=== PATIENT | male | born 1945 | race Caucasian/White ===

== ENCOUNTER 2022-09-30 09:18 | Emergency (ER) | payer MEDICARE, SELFPAY ==
--- NOTE | ~2022-09-30 | XR_ITS ---
EXAMINATION: XR chest 2V DATE: 09/30/2022 10:14 INDICATION: Cough. TECHNIQUE: Frontal and lateral views of the chest were obtained. COMPARISON: None. FINDINGS: There is mild atelectasis versus scarring in the lower lung zones. No pleural effusion or p neumothorax. The heart size is normal. There are prominent paracardial fat pads. IMPRESSION: 1. Mild atelectasis versus scarring in the lower lung zones. Reviewed, dictated and finalized at location A. 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
[2022-09-30 09:48] VITALS: BP 129/52; PULSE 62; RESP 20; TEMP 36.8; O2SAT 97
--- NOTE | 2022-09-30 10:41 | ED.URI ---
HPI - URI/Sore Throat General Chief Complaint: Upper Respiratory Infection Stated Complaint: Cough Time Seen by Provider: 09/30/22 10:42 Source: patient and RN notes reviewed Mode of arrival: ambulatory Limitations: no limitations History of Present Illness HPI Narrative: 76-year-old male presents with concern for cough for more than 1 week. Reports when symptoms 1st started he had fever that resolved. He reports persistent coughing. He reports fatigue and malaise MD elicited complaint: cough and sore throat Related Data Home Medications Medication Instructions Recorded Confirmed carvedilol 25 mg tablet 25 mg PO DAILY 09/30/22 09/30/22 diltiazem HCl 300 mg 300 mg PO DAILY 09/30/22 09/30/22 capsule,extended release 24 hr Allergies Allergy/AdvReac Type Severity Reaction Status Date / Time No Known Allergies Allergy Verified 09/30/22 10:04 Review of Systems Review of Systems: CONSTITUTIONAL: Reports malaise, fatigue. Denies chills, sweats, or fever. EYES: Denies visual changes, redness, or discharge. ENT: Reports rhinorrhea, congestion, sinus pain, otalgia and sore throat. CARDIOVASCULAR: Denies chest pain, palpitations, or edema. RESPIRATORY: Reports persistent cough, episodic dyspnea. GASTROINTESTINAL: Denies abdominal pain, nausea, vomiting, diarrhea SKIN: Denies rash or itching. MUSCULOSKELETAL: Denies myalgia. NEUROLOGIC: Denies headache. All systems reviewed & are unremarkable except as noted in HPI and below PMFSH Comments At time of signature, agree with nursing past medical, surgical, social and family history. There is no relevant family history pertinent to the presenting complaint Exam Narrative: GENERAL: Well-appearing, well-nourished, and in no acute distress. HEAD: Normocephalic EYES: PERRLA, conjunctivae clear ENT: Nares clear. Mucous membranes moist. TM pearly obrien with dull light reflex bilaterally; no tragal tenderness. Oropharynx not erythematous without lesions. Tonsils not enlarged and without exudate, no drooling, no hoarseness, no trismus, uvula midline. NECK: Supple. No lymphadenopathy CHEST: Clear to auscultation, breath sounds diminished in the bases bilaterally with scattered rhonchi. No wheezing, rales, or stridor. No respiratory distress, speaks in full sentences. HEART: Regular rate and rhythm. No murmur heard. SKIN: Warm, dry, no rash. NEURO: Alert and oriented x3. PSYCH: Normal mood and affect Course Course Emergency Course: Patient is aware of diagnosis, understands and agrees to treatment plan. Anticipatory guidance given. Patient agrees to follow-up as directed and is aware of reasons to seek care at the emergency department. Portions of this record may have been created with voice recognition software Level of Care: Express Care Visit Vital Signs Vital signs: Vital Signs Temperature 98.2 F 09/30/22 09:48 Pulse Rate 62 09/30/22 09:48 Respiratory Rate 20 09/30/22 09:48 Blood Pressure 129/52 L 09/30/22 09:48 Pulse Oximetry 97 09/30/22 09:48 Oxygen Delivery Room Air 09/30/22 09:48 Temperature 98.2 F 09/30/22 09:48 Pulse Rate 62 09/30/22 09:48 Respiratory Rate 20 09/30/22 09:48 Blood Pressure 129/52 L 09/30/22 09:48 Pulse Oximetry 97 09/30/22 09:48 Oxygen Delivery Room Air 09/30/22 09:48 Reviewed. MDM - URI/Sore Throat MDM Narrative Medical decision making narrative: Differential diagnosis considered: Flores virus, strep pharyngitis, allergic rhinitis, upper respiratory tract infection, sinusitis, rhinosinusitis, nasopharyngitis. viral pharyngitis, otitis media, otitis externa, pneumonia, bronchitis, viral cough syndrome, viral syndrome, and influenza. Exam findings show no acute concerns or changes; patient is non-toxic appearing and is in no distress. Patient is appropriate for outpatient treatment and follow-up. Lab Data Attestation: I reviewed the patient's lab results. Critical Care Time Critical Care Time Critic
== END 2022-09-30 10:50 | disposition home or self-care (01) ==
PROVIDERS: Emergency Provider Nurse Practitioner; PCP Internal Medicine
DX: J18.9 Pneumonia, unspecified organism (principal); I10 Essential (primary) hypertension
CPT/HCPCS: 71046; 99213; G0463